=== PATIENT | male | born 1980 | race African-American/Black ===

== ENCOUNTER 2018-10-06 08:35 | Emergency (ER) | payer MEDICAID, SELFPAY ==
[~2018-10-06] VITALS: Ht 175.3 cm; Wt 96.2 kg
[2018-10-06 08:46] VITALS: BP 142/99
[2018-10-06 09:23] LABS: ALBUMIN 3.8 g/dL (3.4-5.0); ANION GAP 5 mmol/L (5-15); CHLORIDE 108 mmol/L (98-107); CREATININE 1.21 mg/dL (0.7-1.3)
[2018-10-06 09:30] LABS: MEAN CORPUSCULAR HEMOGLOBIN 31.1 pg (27.5-34.5); MEAN CORPUSCULAR HGB CONC 33.1 g/dL (33.2-36.2); MEAN CORPUSCULAR VOLUME 93.9 fL (81-97); MEAN PLATELET VOLUME 7.2 fL (7.4-10.4); PLATELET COUNT 331 x10^3/uL (130-400); RED BLOOD COUNT 5.08 x10^6/uL (4.38-5.82); RED CELL DISTRIBUTION WIDTH 13.4 % (9.4-14.8)
--- NOTE | 2018-10-06 09:42 | NUR ---
PT TO ROOM FROM LOBBY, STEADY GAIT, NAD
[2018-10-06 10:10] LABS: BASOPHILS % (AUTO) 0 % (0-1); EOSINOPHILS # (AUTO) 0.12 x10^3/uL (0-0.4); EOSINOPHILS % (AUTO) 1 % (1-7); LYMPHOCYTES # (AUTO) 1.48 x10^3/uL (1-3.4); LYMPHOCYTES % (AUTO) 16 % (22-44); MD SCAN; MONOCYTES # (AUTO) 0.51 x10^3/uL (0.2-0.8); MONOCYTES % (AUTO) 6 % (2-9); NEUTROPHILS # (AUTO) 7.18 x10^3/uL (1.8-6.8); NEUTROPHILS % (AUTO) 77 % (42-75)
== END 2018-10-06 10:38 ==
LOC: ED 10:31
DX: M72.2 Plantar fascial fibromatosis (principal); M25.561 Pain in right knee; M25.572 Pain in left ankle and joints of left foot
CPT/HCPCS: 36415; 80048; 82040; 84550; 85025; 99284

== ENCOUNTER 2020-12-09 05:33 | Inpatient (IN) | payer MEDICAID ==
[~2020-12-09] VITALS: Ht 175.3 cm; Wt 64.8 kg
[2020-12-09] MEDS ORDERED: SODIUM CHLORIDE FLUSH 10ML SYR IVF ONE (06:30)
[2020-12-09] MEDS ORDERED: SODIUM CHLORIDE 0.9% 1,000ML IVBOLUS ONE (06:30)
[2020-12-09] MEDS ORDERED: LORazepam 2 MG/ML, 1ML IVPush ONE (06:30)
[2020-12-09 06:42] LABS: BASOPHILS % (AUTO) 1 % (0-1); EOSINOPHILS % (AUTO) 3 % (1-7); LYMPHOCYTES % (AUTO) 16 % (22-44); MEAN CORPUSCULAR HEMOGLOBIN 29.6 pg (27.5-34.5); MEAN CORPUSCULAR HGB CONC 32.5 g/dL (33.2-36.2); MEAN PLATELET VOLUME 6.8 fL (7.4-10.4); MONOCYTES % (AUTO) 7 % (2-9); NEUTROPHILS % (AUTO) 73 % (42-75); PLATELET COUNT 426 x10^3/uL (130-400); RED BLOOD COUNT 3.68 x10^6/uL (4.38-5.82); RED CELL DISTRIBUTION WIDTH 23.3 % (9.4-14.8)
[2020-12-09] MEDS ORDERED: LORazepam 2 MG/ML, 1ML ONE (06:43)
[2020-12-09 06:53] LABS: ALBUMIN 2.4 g/dL (3.4-5.0); ANION GAP 7 mmol/L (5-15); CALCIUM 8.1 mg/dL (8.5-10.1); CHLORIDE 114 mmol/L (98-107); CREATININE 0.88 mg/dL (0.7-1.3)
--- NOTE | 2020-12-09 06:56 | NUR ---
CC OF SOB, SPEAKING FEW WORDS AT A TIME. RECENTLY DC FROM [facility] AND PT STATES HE FELT HE WASN'T READY TO BE DC'S. PT WITH RECENT HX OF CVA AND RIGHT SIDED WEAKENESS.
--- NOTE | 2020-12-09 06:57 | NUR ---
REPORT TO GEORGETTE CAMACHO
[2020-12-09 06:58] LABS: ALKALINE PHOSPHATASE 132 U/L (45-117); BILIRUBIN,TOTAL 0.7 mg/dL (0.2-1.0); TOTAL PROTEIN 6.8 g/dL (6.4-8.2); TROPONIN I 0.033 ng/mL (0.000-0.045)
[2020-12-09 07:00] LABS: ALANINE AMINOTRANSFERASE 30 U/L (12-78)
--- NOTE | 2020-12-09 07:10 | NUR ---
REPORT FROM SOWMYA CAMACHO, ASSUME CARE OF PT AT THIS TIME. PT ASSISTED FROM BR TO ROOM USING WALKER. CALL LIGHT WITHIN REACH.
[2020-12-09 07:27] LABS: AMPHETAMINE SCREEN, URINE Positive (Negative); BARBITURATE SCREEN, URINE Negative (Negative); BENZODIAZEPINE SCREEN, URINE Negative (Negative); CANNABINOID SCREEN, URINE Positive (Negative); COCAINE SCREEN, URINE Negative (Negative); METHADONE SCREEN, URINE Negative (Negative); OPIATE SCREEN, URINE Positive (Negative)
[2020-12-09 07:36] LABS: D-DIMER 3.4 ug/mlFEU (0.00-0.52); INTERNATIONAL NORMALIZED RATIO 1.23 (0.93-1.1)
--- NOTE | 2020-12-09 08:04 | NUR ---
PT WITH MULTIPLE REQUESTS-FOOD, WATER, BLANKETS, REPOSITIONING. PT COUGHING FREQUENTLY, NOT WEARING MASK. IVF BOLUS STOPPED D/T XR, LABWORK. ERP NOTIFIED OF VS, LAB AND XR RESULTS. WARM BLANKETS AND WATER PROVIDED. CALL LIGHT WITHIN REACH.
[2020-12-09] MEDS ORDERED: FUROSEMIDE 40 MG/4 ML ONE (08:10)
--- NOTE | 2020-12-09 08:15 | NUR ---
LASIX GIVEN PER ERP ORDER. URINAL AT BS. CALL LIGHT WITHIN REACH.
--- NOTE | 2020-12-09 08:20 | NUR ---
SPOKE WITH DR MITCHELL. NO SEPSIS PROTOCOL D/T SX INDICATING SUCH A RESULT OF METH USE AND NONCOMPLIANCE WITH HOME MEDS/CARE. NO SOURCE OF INFECTION.
[2020-12-09] MEDS ORDERED: FUROSEMIDE 40 MG/4 ML IV ONE (08:30)
[2020-12-09] MEDS ORDERED: OMNIPAQUE 350 MG/ML, 75ML BOTTLE ONE (09:01)
--- NOTE | 2020-12-09 09:18 | NUR ---
COVID SWAB COLLECTED/WALKED TO LAB. URINAL X 2 EMPTIED/RECORDED IN OUTPUT. MED REC COMPLETED TO BEST OF PT'S ABILITY.
--- NOTE | 2020-12-09 09:43 | NUR ---
PINK SHEET STARTED, PT STILL NOT MEETING SEPSIS PROTOCOL CRITERIA FOR A TIME ZERO. INSTRUMENTATION CHEMIST AWARE. PINK SHEET ON CHART.
[2020-12-09] MEDS ORDERED: SPIR25TA5 PO (10:00)
[2020-12-09] MEDS ORDERED: PIPERACILLIN/TAZO 3.375 GM in DEXTROSE 5% 50 ML IVPB ONE (10:00)
[2020-12-09] MEDS ORDERED: LISI2.5T12 PO (10:00)
[2020-12-09] MEDS ORDERED: coumadin PO (10:00)
--- NOTE | 2020-12-09 10:00 | NUR ---
[facility] IN TO SEE PT.
[2020-12-09] MEDS ORDERED: BISACODYL 10 MG SUPP PR PRN (10:30)
[2020-12-09] MEDS: ALBUTEROL HFA 90 MCG/SPRAY INH SCH ×3 (10:30→22:53)
[2020-12-09] MEDS ORDERED: ENALAPRILAT 1.25 MG/ML, 2ML IVPush PRN ×2 (10:30→22:30)
[2020-12-09] MEDS ORDERED: ACETAMINOPHEN 325 MG TABLET PO PRN (10:30)
[2020-12-09] MEDS ORDERED: ONDANSETRON 2MG/ML, 2ML IVPush PRN (10:30)
[2020-12-09] MEDS ORDERED: NITROGLYCERIN OINT 2%, 1GM TP ONE (10:30)
[2020-12-09] MEDS ORDERED: morphine SULFATE 10 MG/ML, 1ML IVPush PRN (10:30)
[2020-12-09] MEDS: PIPERACILLIN/TAZO 3.375 GM in DEXTROSE 5% 50 ML IV SCH ×3 (10:30→22:54)
[2020-12-09] MEDS ORDERED: ALBUTEROL HFA 90 MCG/SPRAY INH PRN (10:30)
[2020-12-09] MEDS ORDERED: NITROGLYCERIN 0.4 MG BOTTLE (25 TABS) SL PRN (10:30)
[2020-12-09] MEDS ORDERED: hydrALAzine 20 MG/ML, 1ML IVPush PRN (10:30)
[2020-12-09] MEDS ORDERED: HYDROcodone/APAP 5/325 TABLET PO PRN ×2 (10:30→18:30)
[2020-12-09] MEDS ORDERED: POLYETHYLENE GLYCOL 17 GM PACKET PO PRN (10:30)
[2020-12-09] MEDS ORDERED: LORazepam 1MG TABLET PO PRN (10:30)
[2020-12-09 10:55] VITALS: BP 113/71
[2020-12-09] MEDS ORDERED: DO NOT GIVE XX SCH (11:00)
[2020-12-09 11:05] VITALS: BP 113/71
[2020-12-09] MEDS ORDERED: HEPARIN 25,000 UNITS/250ML PMX 250 ML IV PRN (13:30)
[2020-12-09] MEDS ORDERED: HEPARIN 5,000 UNITS/ML, 1ML IV ONE (13:30)
[2020-12-09] MEDS ORDERED: HEPARIN 5,000 UNITS/ML, 1ML IV PRN (13:30)
[2020-12-09] MEDS ORDERED: HEPARIN wt. based STROKE protocol MC SCH ×2 (14:00)
[2020-12-09] MEDS: GUAIFENESIN/COD200MG-20MG/10ML LIQUID PO PRN ×2 (15:53→21:48)
[2020-12-09 15:58] VITALS: BP 102/73
[2020-12-09 16:17] LABS: TROPONIN I 0.044 ng/mL (0.000-0.045)
[2020-12-09] MEDS: FUROSEMIDE 40 MG/4 ML IV SCH (16:37)
[2020-12-09] MEDS ORDERED: WARFARIN 10 MG TABLET PO-COUM ONE (18:30)
[2020-12-09 21:23] VITALS: BP 109/72
[2020-12-09] MEDS: SODIUM CHLORIDE FLUSH 10ML SYR IVF SCH (21:35)
[2020-12-10 00:54] VITALS: BP 99/67
[2020-12-10] MEDS: PIPERACILLIN/TAZO 3.375 GM in DEXTROSE 5% 50 ML IV SCH ×4 (05:30→23:25)
[2020-12-10] MEDS: ALBUTEROL HFA 90 MCG/SPRAY INH SCH ×4 (05:31→23:25)
[2020-12-10] MEDS: FUROSEMIDE 40 MG/4 ML IV SCH (08:54)
[2020-12-10] MEDS: SODIUM CHLORIDE FLUSH 10ML SYR IVF SCH ×2 (08:55→20:46)
[2020-12-10] MEDS: LISINOPRIL 5 MG TABLET PO SCH (08:56)
[2020-12-10 09:00] VITALS: BP 114/87
[2020-12-10] MEDS: morphine SULFATE 10 MG/ML, 1ML IVPush PRN ×2 (10:11→20:46)
[2020-12-10] MEDS ORDERED: CAPSAICIN CRM 0.075%, 60GM TP PRN (10:30)
[2020-12-10] MEDS: PANTOPRAZOLE 40 MG IV IVPush SCH (10:54)
[2020-12-10] MEDS: WARFARIN HIGH DOSE PROTOCOL XX SCH (12:00)
[2020-12-10 13:07] LABS: ALANINE AMINOTRANSFERASE 22 U/L (12-78); ALBUMIN 2.1 g/dL (3.4-5.0); ANION GAP 6 mmol/L (5-15); CHLORIDE 106 mmol/L (98-107); INTERNATIONAL NORMALIZED RATIO 1.78 (0.93-1.1); PROTHROMBIN TIME 18.5 Seconds (9.6-11.5)
[2020-12-10 13:15] LABS: BASOPHILS % (AUTO) 1 % (0-1); EOSINOPHILS % (AUTO) 6 % (1-7); LYMPHOCYTES % (AUTO) 21 % (22-44); MEAN CORPUSCULAR HEMOGLOBIN 29.7 pg (27.5-34.5); MEAN CORPUSCULAR HGB CONC 32.9 g/dL (33.2-36.2); MEAN PLATELET VOLUME 7.5 fL (7.4-10.4); MONOCYTES % (AUTO) 11 % (2-9); NEUTROPHILS % (AUTO) 61 % (42-75); PLATELET COUNT 372 x10^3/uL (130-400); RED BLOOD COUNT 3.82 x10^6/uL (4.38-5.82); RED CELL DISTRIBUTION WIDTH 23.4 % (9.4-14.8)
[2020-12-10 13:16] LABS: ALKALINE PHOSPHATASE 110 U/L (45-117); BILIRUBIN,TOTAL 0.6 mg/dL (0.2-1.0); CHOL/HDL RATIO 2.2; CHOLESTEROL, TOTAL 113 mg/dL (140-239); CREATININE 0.85 mg/dL (0.7-1.3); HDL CHOL % 46 % (26-37); HDL CHOLESTEROL (DIRECT) 52 mg/dL (40-60); LDL CHOLESTEROL,CALCULATED 52 mg/dL (54-169); TOTAL PROTEIN 6.6 g/dL (6.4-8.2); TRIGLYCERIDES 46 mg/dL (50-200); VLDL CHOLESTEROL 9 mg/dL (0-25)
[2020-12-10] MEDS ORDERED: WARFARIN 5 MG TABLET PO-COUM ONE (18:00)
[2020-12-10 20:16] VITALS: BP 106/74
[2020-12-10] MEDS: GUAIFENESIN/COD200MG-20MG/10ML LIQUID PO PRN (21:43)
[2020-12-11 01:43] VITALS: BP 110/79
[2020-12-11] MEDS: PIPERACILLIN/TAZO 3.375 GM in DEXTROSE 5% 50 ML IV SCH ×4 (05:10→23:09)
[2020-12-11] MEDS: ALBUTEROL HFA 90 MCG/SPRAY INH SCH ×4 (05:10→23:08)
[2020-12-11 07:23] LABS: BASOPHILS % (AUTO) 1 % (0-1); EOSINOPHILS % (AUTO) 6 % (1-7); LYMPHOCYTES % (AUTO) 22 % (22-44); MEAN CORPUSCULAR HEMOGLOBIN 29.5 pg (27.5-34.5); MEAN CORPUSCULAR HGB CONC 32.6 g/dL (33.2-36.2); MEAN PLATELET VOLUME 7.4 fL (7.4-10.4); MONOCYTES % (AUTO) 8 % (2-9); NEUTROPHILS % (AUTO) 63 % (42-75); PLATELET COUNT 351 x10^3/uL (130-400); RED BLOOD COUNT 3.69 x10^6/uL (4.38-5.82); RED CELL DISTRIBUTION WIDTH 22.7 % (9.4-14.8)
[2020-12-11 07:26] LABS: INTERNATIONAL NORMALIZED RATIO 2.17 (0.93-1.1); PROTHROMBIN TIME 22.4 Seconds (9.6-11.5)
[2020-12-11 07:28] LABS: ANION GAP 6 mmol/L (5-15); CHLORIDE 109 mmol/L (98-107); CREATININE 0.77 mg/dL (0.7-1.3)
[2020-12-11] MEDS: PANTOPRAZOLE 40 MG IV IVPush SCH (08:05)
[2020-12-11] MEDS: LISINOPRIL 5 MG TABLET PO SCH (08:05)
[2020-12-11] MEDS: SODIUM CHLORIDE FLUSH 10ML SYR IVF SCH ×2 (08:09→21:03)
[2020-12-11 09:20] VITALS: BP 97/64
[2020-12-11] MEDS: WARFARIN HIGH DOSE PROTOCOL XX SCH (12:14)
[2020-12-11 12:58] VITALS: BP 99/70
[2020-12-11] MEDS: METOPROLOL TARTRATE 25 MG TAB PO SCH (17:18)
[2020-12-11] MEDS ORDERED: WARFARIN 5 MG TABLET PO-COUM ONE (18:00)
[2020-12-11] MEDS ORDERED: METOPROLOL TARTRATE 25 MG TAB PO SCH (18:00)
[2020-12-11 19:05] VITALS: BP 102/75
[2020-12-11] MEDS ORDERED: MELATONIN 5 MG TABLET PO PRN (21:00)
[2020-12-11] MEDS: GUAIFENESIN/COD200MG-20MG/10ML LIQUID PO PRN (21:03)
[2020-12-12 00:57] VITALS: BP 94/70
[2020-12-12] MEDS: ALBUTEROL HFA 90 MCG/SPRAY INH SCH (05:27)
[2020-12-12] MEDS: PIPERACILLIN/TAZO 3.375 GM in DEXTROSE 5% 50 ML IV SCH (05:28)
[2020-12-12] MEDS: METOPROLOL TARTRATE 25 MG TAB PO SCH (05:28)
[2020-12-12 06:56] LABS: INTERNATIONAL NORMALIZED RATIO 2.26 (0.93-1.1); PROTHROMBIN TIME 23.3 Seconds (9.6-11.5)
[2020-12-12] MEDS ORDERED: LISINOPRIL 5 MG TABLET PO SCH (09:00)
[2020-12-12] MEDS ORDERED: AMOX1TAB64 PO (09:13)
[2020-12-12] MEDS ORDERED: WARF-36 PO (09:13)
[2020-12-12] MEDS ORDERED: FURO20TA3 PO (09:13)
[2020-12-12] MEDS ORDERED: SPIR25TA PO (09:13)
[2020-12-12] MEDS ORDERED: METO25TA91 PO (09:13)
[2020-12-12] MEDS ORDERED: FUROSEMIDE 20 MG TABLET PO SCH (09:30)
[2020-12-12] MEDS ORDERED: SPIRONOLACTONE 25 MG TABLET PO SCH (09:30)
[2020-12-13] MEDS ORDERED: METOPROLOL SUCCINATE 25 MG TAB.ER.24H PO SCH (06:00)
[2020-12-26] MEDS ORDERED: FERR-46 PO (17:48)
[2020-12-26] MEDS ORDERED: ATOR10TA9 PO (17:48)
[2020-12-26] MEDS ORDERED: METO25TA35 PO (17:48)
[2020-12-26] MEDS ORDERED: CLOP75TA52 PO (17:48)
[2020-12-26] MEDS ORDERED: SPIR25TA5 PO (17:48)
[2020-12-26] MEDS ORDERED: FAMO20TA7 PO (17:48)
[2020-12-26] MEDS ORDERED: WARF-36 PO (17:48)
[2020-12-26] MEDS ORDERED: MULT-826 PO (17:48)
[2020-12-26] MEDS ORDERED: LISI10TA19 PO (17:48)
== END 2020-12-12 09:53 | disposition home or self-care (01) | DRG 139 ==
LOC: ED 09:27 → EDIP 10:14 → 4WST 13:30
PROVIDERS: ADMIT Internal Medicine; ATTEND Internal Medicine
DX: J18.1 Lobar pneumonia, unspecified organism (principal); J96.01 Acute respiratory failure with hypoxia; I50.23 Acute on chronic systolic (congestive) heart failure; D68.69 Other thrombophilia; D63.8 Anemia in other chronic diseases classified elsewhere; E88.09 Other disorders of plasma-protein metabolism, not elsewhere classified; I51.3 Intracardiac thrombosis, not elsewhere classified; I11.0 Hypertensive heart disease with heart failure; Z79.01 Long term (current) use of anticoagulants; F12.90 Cannabis use, unspecified, uncomplicated; F41.9 Anxiety disorder, unspecified; F19.10 Other psychoactive substance abuse, uncomplicated; M19.90 Unspecified osteoarthritis, unspecified site; I25.10 Atherosclerotic heart disease of native coronary artery without angina pectoris; Z53.29 Procedure and treatment not carried out because of patient's decision for other reasons; I25.5 Ischemic cardiomyopathy; I16.1 Hypertensive emergency; Z20.822 Contact with and (suspected) exposure to COVID-19; Z95.5 Presence of coronary angioplasty implant and graft; Z91.19 Patient's noncompliance with other medical treatment and regimen; Z88.8 Allergy status to other drugs, medicaments and biological substances; Z86.73 Personal history of transient ischemic attack (TIA), and cerebral infarction without residual deficits; Z87.11 Personal history of peptic ulcer disease
CPT/HCPCS: 36415; 70450; 71045; 71275; 80048; 80053; 80061; 80307; 83605; 83735; 83880; 84145; 84443; 84484; 85025; 85379; 85520; 85610; 87040; 93005; 96361; 96365; 96375; 99291; G0378; J1940; J2543; Q9967; U0005; C9113; J2060; J2270; J7030; U0003

== ENCOUNTER 2020-12-12 20:40 | Emergency (ER) | payer MEDICAID ==
[~2020-12-12] VITALS: Ht 175.3 cm; Wt 66.9 kg
[~2020-12-12 20:40] MED LIST: AMOX1TAB64 PO; FURO20TA3 PO; LISI2.5T12 PO; METO25TA91 PO; SPIR25TA PO; SPIR25TA5 PO; WARF-36 PO; coumadin PO
--- NOTE | 2020-12-12 20:48 | NUR ---
CODE CARDIAC [email or web address]
--- NOTE | 2020-12-12 20:49 | NUR ---
code cardiac cancelled
[2020-12-12] MEDS ORDERED: SODIUM CHLORIDE 0.9% 1,000ML IVBOLUS ONE (21:00)
[2020-12-12] MEDS ORDERED: LORazepam 2 MG/ML, 1ML IVPush ONE (21:00)
[2020-12-12] MEDS ORDERED: LORazepam 2 MG/ML, 1ML ONE (21:01)
[2020-12-12 21:04] LABS: BASOPHILS % (AUTO) 1 % (0-1); EOSINOPHILS % (AUTO) 4 % (1-7); LYMPHOCYTES % (AUTO) 25 % (22-44); MEAN CORPUSCULAR HEMOGLOBIN 29.4 pg (27.5-34.5); MEAN CORPUSCULAR HGB CONC 32.3 g/dL (33.2-36.2); MEAN PLATELET VOLUME 7.4 fL (7.4-10.4); MONOCYTES % (AUTO) 11 % (2-9); NEUTROPHILS % (AUTO) 60 % (42-75); PLATELET COUNT 392 x10^3/uL (130-400); RED BLOOD COUNT 3.94 x10^6/uL (4.38-5.82); RED CELL DISTRIBUTION WIDTH 22.5 % (9.4-14.8)
[2020-12-12 21:09] LABS: ALBUMIN 2.3 g/dL (3.4-5.0); ANION GAP 7 mmol/L (5-15); CALCIUM 8.4 mg/dL (8.5-10.1); CHLORIDE 108 mmol/L (98-107); CREATININE 1.05 mg/dL (0.7-1.3)
[2020-12-12 21:27] LABS: TROPONIN I < 0.015 ng/mL (0.000-0.045)
--- NOTE | 2020-12-12 21:30 | NUR ---
REPORT TO CHULA KOROMA MOVED TO ROOM 27
--- NOTE | 2020-12-12 21:35 | NUR ---
ASSUMED CARE OF PATIENT. BEDSIDE REPORT GIVEN FROM DOUG WARD
[2020-12-12 21:43] LABS: <PLATELET ESTIMATE> ADEQUATE; ANISOCYTOSIS 1+; HYPOCHROMIA 1+; POLYCHROMASIA 1+; TARGET CELLS 1+
[2020-12-12 21:44] LABS: <PLT MORPHOLOGY> NORMAL PLT MORPH
--- NOTE | 2020-12-12 21:56 | NUR ---
DR CONTI HAS UPDATED PATIENT. PATIENT TO BE DISCHARGED.
[2020-12-12 22:30] VITALS: BP 100/62
--- NOTE | 2020-12-12 22:32 | NUR ---
VS STABLE, PT DISCHARGED PER DR CONTI. PT LEFT WITH [facility].
[2020-12-26] MEDS ORDERED: CLOP75TA52 PO (17:48)
[2020-12-26] MEDS ORDERED: FERR-46 PO (17:48)
[2020-12-26] MEDS ORDERED: SPIR25TA5 PO (17:48)
[2020-12-26] MEDS ORDERED: MULT-826 PO (17:48)
[2020-12-26] MEDS ORDERED: LISI10TA19 PO (17:48)
[2020-12-26] MEDS ORDERED: METO25TA35 PO (17:48)
[2020-12-26] MEDS ORDERED: FAMO20TA7 PO (17:48)
[2020-12-26] MEDS ORDERED: WARF-36 PO (17:48)
[2020-12-26] MEDS ORDERED: ATOR10TA9 PO (17:48)
== END 2020-12-12 22:34 ==
LOC: ED 21:44
DX: I50.9 Heart failure, unspecified (principal); I42.9 Cardiomyopathy, unspecified; J18.9 Pneumonia, unspecified organism; F11.229 Opioid dependence with intoxication, unspecified; F15.229 Other stimulant dependence with intoxication, unspecified; F12.229 Cannabis dependence with intoxication, unspecified; Z72.9 Problem related to lifestyle, unspecified
CPT/HCPCS: 36415; 71045; 80048; 82040; 84484; 85025; 93005; 96374; 99285; J2060; J7030

== ENCOUNTER 2020-12-26 12:18 | Inpatient (IN) | payer MEDICAID, OTHER ==
[~2020-12-26] VITALS: Ht 177.8 cm; Wt 71.9 kg
[2021-01-03 11:05] VITALS: BP 109/79
== END 2021-01-03 12:58 | DRG 720 ==
LOC: ED 20:59 → EDIP 12-27 04:38 → 4WST 12-27 16:36
PROVIDERS: ADMIT Hospitalist; ATTEND Hospitalist
DX: A41.9 Sepsis, unspecified organism (principal); I26.09 Other pulmonary embolism with acute cor pulmonale; D68.32 Hemorrhagic disorder due to extrinsic circulating anticoagulants; D68.69 Other thrombophilia; E87.2 Acidosis; D63.8 Anemia in other chronic diseases classified elsewhere; E87.1 Hypo-osmolality and hyponatremia; D69.6 Thrombocytopenia, unspecified; J18.0 Bronchopneumonia, unspecified organism; E87.5 Hyperkalemia; R04.2 Hemoptysis; T45.515A Adverse effect of anticoagulants, initial encounter; E78.5 Hyperlipidemia, unspecified; I42.9 Cardiomyopathy, unspecified; F12.90 Cannabis use, unspecified, uncomplicated; I25.10 Atherosclerotic heart disease of native coronary artery without angina pectoris; Y95 Nosocomial condition; I27.20 Pulmonary hypertension, unspecified; I34.0 Nonrheumatic mitral (valve) insufficiency; I36.1 Nonrheumatic tricuspid (valve) insufficiency; R65.20 Severe sepsis without septic shock; I51.3 Intracardiac thrombosis, not elsewhere classified; J40 Bronchitis, not specified as acute or chronic; Z20.822 Contact with and (suspected) exposure to COVID-19; I11.0 Hypertensive heart disease with heart failure; I50.9 Heart failure, unspecified; Z87.891 Personal history of nicotine dependence; Z79.01 Long term (current) use of anticoagulants; Z91.14 Patient's other noncompliance with medication regimen; Z95.5 Presence of coronary angioplasty implant and graft; I69.351 Hemiplegia and hemiparesis following cerebral infarction affecting right dominant side; Z86.16 Personal history of COVID-19; Z87.01 Personal history of pneumonia (recurrent); Z91.19 Patient's noncompliance with other medical treatment and regimen; Z79.899 Other long term (current) drug therapy; Y92.89 Other specified places as the place of occurrence of the external cause; Z79.02 Long term (current) use of antithrombotics/antiplatelets